=== PATIENT | female | born 1985 | race Caucasian/White ===

== ENCOUNTER 2020-01-02 17:49 | Emergency (ER) | payer OTHER ==
--- NOTE | 2020-01-02 18:15 | EDM.PDOC ---
ED HPI GENERAL MEDICAL PROBLEM - General Chief Complaint: Lower Extremity Injury/Pain Stated Complaint: INJURED RT ANKLE Time Seen by Provider: 01/02/20 18:00 Source of Information: Reports: Patient History Limitations: Reports: No Limitations - History of Present Illness INITIAL COMMENTS - FREE TEXT/NARRATIVE: HISTORY AND PHYSICAL: History of present illness: Patient is a 34-year-old female who presents to the emergency room with complaints of right ankle pain. She states on Tuesday she rolled her ankle and had fallen. Since that time she has had soft tissue swelling and bruising and pain with weightbearing. Today she was able to get into the clinic and had an x-ray but was discharged to home. On her way home she was called by the provider and stated that she needed to come to the emergency room as she did have a fracture. Upon arrival the patient is using crutches and states she has been nonweightbearing. She denies any other extremity involvement. Offers no systemic complaints. Review of systems: As per history of present illness and below otherwise all systems reviewed and negative. Past medical history: As per history of present illness and as reviewed below otherwise noncontributory. Surgical history: As per history of present illness and as reviewed below otherwise noncontributory. Social history: See social history for further information Family history: As per history of present illness and as reviewed below otherwise noncontributory. Physical exam: General: Well-developed and well-nourished 34-year-old female. Alert and oriented. Nontoxic-appearing and in no acute distress HEENT: Atraumatic, normocephalic, pupils equal and reactive bilaterally, negative for conjunctival pallor or scleral icterus, mucous membranes moist, TMs normal bilaterally, throat clear, neck supple, nontender, trachea midline. No drooling or trismus noted. No meningeal signs. No hot potato voice noted. Lungs: Clear to auscultation, breath sounds equal bilaterally, chest nontender. Heart: S1S2, regular rate and rhythm without overt murmur Abdomen: Soft, nondistended, nontender. Negative for masses or hepatosplenomegaly. Negative for costovertebral tenderness. Skin: Intact, warm, dry. No lesions or rashes noted. Extremities: Bruising along the lateral aspect of the foot with soft tissue swelling. She does have medial and lateral malleolus tenderness. Moves all extremities per self without difficulty or deficits, negative for cords or calf pain. Neurovascular unremarkable. Neuro: Awake, alert, oriented. Cranial nerves II through XII unremarkable. Cerebellum unremarkable. Motor and sensory unremarkable throughout. Exam nonfocal. Notes: Patient had an x-ray at clinic. We were able to get this x-ray read while patient is here in the emergency room. X-ray shows a minimally displaced lateral malleolus fracture with soft tissue swelling. Custom fiberglass posterior mold was placed for fracture care and supportive care. Patient states she has multiple allergies to any form of narcotics and declines wanting any prescription at this time. I did encourage her to call tomorrow morning to set up an appointment with the orthopedic provider. Supportive care measures were reviewed and discussed. Voices understanding and is agreeable to plan of care. Denies any further questions or concerns at this time. Diagnostics: None Therapeutics: Fiberglass splint Prescription: Declines Impression: Lateral malleolus fracture, right Plan: 1. Rest, ice, elevate the affected extremity. Please wear the splint and use crutches to be nonweightbearing until you follow-up with an orthopedic provider. 2. Tylenol and/or Ibuprofen as needed for pain management. 3. Follow up with the Orthopedic provider as we discussed, call tomorrow to make your appointment. Return to the ED as needed and as discussed. Definitive disposition and diagnosis as appropriate pending reevaluation and review of above. R ankle Pain Score (Numeric/FACES): 4 - Related Data Allergies Allergy/AdvReac Type Severity Reaction Status Date / Time acetaminophen [From Percocet] Allergy Hallucinati Verified 01/02/20 18:05 ons codeine Allergy Seizure Verified 01/02/20 18:05 hydrocodone Allergy Seizure Verified 01/02/20 18:05 oxycodone [From Percocet] Allergy Hallucinati Verified 01/02/20 18:05 ons propoxyphene Allergy Hallucinati Verified 01/02/20 18:05 [From Darvocet-N] ons Sulfa (Sulfonamide Allergy Cannot Verified 01/02/20 18:05 Antibiotics) Remember Home Meds: Home Meds C 01/02/20 [History] Escitalopram Oxalate [Lexapro] 5 mg PO DAILY 01/02/20 [History] Past Medical History Genitourinary History: Reports: None [employer] History: Reports: Musculoskeletal History: Reports: None Psychiatric History: Reports: Anxiety - Infectious Disease History Infectious Disease History: Reports: Chicken Pox - Past Surgical History Female Surgical History: Reports: Section Musculoskeletal Surgical History: Reports: Other (See Below) Other Musculoskeletal Surgeries/Procedures:: L knee Social & Family History - Family History Family Medical History: Noncontributory - Tobacco Use Smoking Status *Q: Never Smoker Second Hand Smoke Exposure: No - Caffeine Use Caffeine Use: Reports: Coffee - Recreational Drug Use Recreational Drug Use: No Review of Systems - Review of Systems Review Of Systems: Comprehensive ROS is negative, except as noted in HPI. ED EXAM, GENERAL - Physical Exam Exam: See Below (See dictation) Course - Vital Signs Last Recorded V/S: Last Vital Signs Temp 96.9 F 01/02/20 17:57 Pulse 80 01/02/20 17:57 Resp 18 01/02/20 17:57 BP Pulse Ox 98 01/02/20 17:57 - Orders/Labs/Meds Orders: Active Orders 24 hr Category Date Time Status DME for Discharge [COMM] Stat Oth 01/02/20 18:16 Ordered Departure - Departure Time of Disposition: 18:43 Disposition: Home, Self-Care 01 Clinical Impression: Fractured lateral malleolus Qualifiers: Encounter type: initial encounter Fracture type: closed Fracture alignment: displaced Laterality: right Qualified Code(s): S82.61XA - Displaced fracture of lateral malleolus of right fibula, initial encounter for closed fracture - Discharge Information Instructions: Ankle Fracture, [id number] Referrals: Arabella Fortune [employer] OPERATOR [Primary Care Provider] - Forms: ED Department Discharge Additional Instructions: The following information is given to patients seen in the emergency department who are being discharged to home. This information is to outline your options for follow-up care. We provide all patients seen in our emergency department with a follow-up referral. The need for follow-up, as well as the timing and circumstances, are variable depending upon the specifics of your emergency department visit. If you don't have a primary care physician on staff, we will provide you with a referral. We always advise you to contact your personal physician following an emergency department visit to inform them of the circumstance of the visit and for follow-up with them and/or the need for any referrals to a consulting specialist. The emergency department will also refer you to a specialist when appropriate. This referral assures that you have the opportunity for follow-up care with a specialist. All of these measure are taken in an effort to provide you with optimal care, which includes your follow-up. Under all circumstances we always encourage you to contact your private physician who remains a resource for coordinating your care. When calling for follow-up care, please make the office aware that this follow-up is from your recent emergency room visit. If for any reason you are refused follow-up, please contact the [facility] Emergency Department at and asked to speak to the emergency department charge nurse. [facility] Specialty Care - Orthopedic Clinic Professional Building [address] [place] [address], [address] [place] [address] Dr Matson, Orthopedist [facility] [address] [place] [address] Orthopedics at [facility] [address] [place] [address] [facility] [address] [place] [address] 1. Rest, ice, elevate the affected extremity. Please wear the splint and use crutches to be nonweightbearing until you follow-up with an orthopedic provider. 2. Tylenol and/or Ibuprofen as needed for pain management. 3. Follow up with the Orthopedic provider as we discussed, call tomorrow to make your appointment. Return to the ED as needed and as discussed. Sepsis Event Note - Evaluation Sepsis Screening Result: No Definite Risk - Focused Exam Vital Signs: Vital Signs Temp Pulse Resp Pulse Ox 01/02/20 17:57 96.9 F 80 18 98 Date Exam was Performed: 01/02/20 Time Exam was Performed: 18:42 - My Orders Last 24 Hours: My Active Orders 01/02/20 18:16 DME for Discharge [COMM] Stat - Assessment/Plan Last 24 Hours: My Active Orders 01/02/20 18:16 DME for Discharge [COMM] Stat
== END 2020-01-02 19:00 | disposition home or self-care (01) ==
LOC: MW.ED 17:49
CPT/HCPCS: 29515; 99282; 99283-25

== ENCOUNTER 2020-11-20 12:18 | Emergency (ER) | payer BC, OTHER ==
[2020-11-20] MEDS ORDERED: Sodium Chloride 0.9% 1,000 ML IV ONE (12:20)
--- NOTE | 2020-11-20 12:32 | EDM.PDOC ---
ED HPI GENERAL MEDICAL PROBLEM - General Chief Complaint: Abdominal Pain Stated Complaint: CLINIC TRANFSER Time Seen by Provider: 11/20/20 12:19 Source of Information: Reports: Patient History Limitations: Reports: No Limitations - History of Present Illness INITIAL COMMENTS - FREE TEXT/NARRATIVE: HISTORY AND PHYSICAL: History of present illness: Patient is a 35-year-old female who presents to the emergency room from the clinic with concerns of right lower quadrant pain that has been progressively getting worse over the past 4 days. She states this morning any movement would cause pain in the right lower quadrant, has associated nausea. The provider at the clinic is worried for appendicitis. Patient denies any fever, chills, headache, change in vision, syncope or near syncope. Denies any chest pain, back pain, shortness of breath or cough. Denies any abdominal pain, nausea, vomiting, diarrhea, constipation or dysuria. Has not noted any blood in urine or stool. Zaki renee has been eating and drinking appropriately. Review of systems: As per history of present illness and below otherwise all systems reviewed and negative. Past medical history: As per history of present illness and as reviewed below otherwise noncontributory. Surgical history: As per history of present illness and as reviewed below otherwise noncontributory. Social history: See social history for further information Family history: As per history of present illness and as reviewed below otherwise noncontributory. Physical exam: General: Well developed and well nourished 35 year old female. Alert and orientated x 3. Nontoxic in appearance and in no acute distress. Vital signs are stable and have been reviewed by me. Nursing notes were reviewed. Accompanied by . HEENT: Atraumatic, normocephalic, pupils equal and reactive bilaterally, negative for conjunctival pallor or scleral icterus, mucous membranes moist, trachea midline. No drooling or trismus noted. No meningeal signs. No hot potato voice noted. Lungs: Clear to auscultation bilaterally. No wheezes, rales, or rhonchi. Chest nontender. Normal work of breathing, no accessory muscles used. Heart: S1S2, regular rate and rhythm without overt murmur, gallops, or rubs. No JVD. No peripheral edema Abdomen: Soft, nondistended, RLQ tenderness with rebound tenderness. Normoactive bowel sounds. Negative for masses or costovertebral tenderness. Pelvis: Stable nontender. Genitourinary/Rectal: Deferred. Skin: Intact, warm, dry. No lesions or rashes noted. Hematologic: No petechiae or purpra. Mucosa appropriate color and normal nail bed color and refill. Extremities: Atraumatic, moves all extremities per self without difficulty or deficits, negative for cords or calf pain. Neurovascular unremarkable. Neuro: Awake, alert, oriented. Cranial nerves II through XII unremarkable. Cerebellum unremarkable. Motor and sensory unremarkable throughout. Exam nonfocal. Psychiatric: Mood and affect are appropriate. Normal thought process. Answering questions appropriately. Notes: *This patient was seen and evaluated during the 2019 SARS-CoV-2 novel coronavirus pandemic period. Community viral transmission is ongoing at time of this encounter and the emergency department is operating under pandemic response procedures. Patient did have lab work while in the clinic today. WBC 13.9. Negative chemistry. Negative test. She will have a Covid testing and CT of the abdomen and pelvis while here. Patient declines wanting any pain medication stating that she has numerous allergies to pain medications and would prefer not to have anything at this time. CT shows inflammatory process in the right lower quadrant due to cecal diverticulitis. The appendix is normal in appearance but adjacent to this process. No collection. Follow-up is advised. We discussed inpatient versus outpatient treatment. I will give her her first dose of IV antibiotics here along with Zofran. She would prefer to do outpatient therapy which I feel is appropriate. She has demonstrated she can tolerate p.o. while here. Her vital signs remained stable. We discussed signs and symptoms that would prompt her to return to the emergency room. She voices understanding and is agreeable to plan of care. She denies any further questions or concerns at this time. Diagnostics: (CBC, CMP, UA, HCGU was done in clinic) - COVID, CT abd/pelvis Therapeutics: IV fluids, Flagyl, Cipro Prescription: Flagyl, Cipro Impression: Cecal diverticulitis Plan: 1. You have an infection of the diverticula, called diverticulitis. This does require antibiotics for treatment. Please drink plenty of fluids, liquid diet and bowel rest (low fiber foods) are important. Please make sure you do not drink any alcohol while taking the Flagyl as this can cause you to feel nauseated 2. You can alternate Tylenol and ibuprofen as needed for pain and fever management. 3. We encourage you to follow up with your primary care provider and/or recommended specialist in the next few days for re-evaluation and further care/management. 4. If your symptoms should worsen, new symptoms develop or any of the signs and symptoms we discussed should arise please return to the emergency room or call 911 (if needed). Definitive disposition and diagnosis as appropriate pending reevaluation and review of above. Abdomen Pain Score (Numeric/FACES): 5 - Related Data Allergies Allergy/AdvReac Type Severity Reaction Status Date / Time acetaminophen [From Percocet] Allergy Hallucinati Verified 11/20/20 12:43 ons codeine Allergy Seizure Verified 11/20/20 12:43 hydrocodone Allergy Seizure Verified 11/20/20 12:43 oxycodone [From Percocet] Allergy Hallucinati Verified 11/20/20 12:43 ons propoxyphene Allergy Hallucinati Verified 11/20/20 12:43 [From Darvocet-N] ons Sulfa (Sulfonamide Allergy Cannot Verified 11/20/20 12:43 Antibiotics) Remember Home Meds: Home Meds Escitalopram Oxalate [Lexapro] 5 mg PO DAILY 01/02/20 [History] Ciprofloxacin HCl [Cipro] 500 mg PO BID 7 Days #14 tablet 11/20/20 [Rx] metroNIDAZOLE [Flagyl] 500 mg PO BID 7 Days #14 tab 11/20/20 [Rx] Past Medical History Genitourinary History: Reports: 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 ED EXAM, GI/ABD - Physical Exam Exam: See Below (See dictation) Course - Vital Signs Last Recorded V/S: Last Vital Signs Temp 98.3 F 11/20/20 12:44 Pulse 69 11/20/20 15:22 Resp 13 11/20/20 15:22 BP 114/53 L 11/20/20 15:22 Pulse Ox 100 11/20/20 15:22 - Orders/Labs/Meds Labs: Laboratory Tests 11/20/20 Range/Units 13:20 SARS-CoV-2 RNA (LARRY) NEGATIVE (NEGATIVE) Meds: Medications Discontinued Medications Generic Name Dose Route Start Last Admin Trade Name Patti PRN Reason Stop Dose Admin Sodium Chloride 1,000 mls @ 125 mls/hr 11/20/20 12:20 11/20/20 12:52 Normal Saline IV 11/20/20 20:19 125 mls/hr STAT ONE Administration Ciprofloxacin/Dextrose 400 mg/ 200 mls @ 200 mls/hr 11/20/20 13:45 11/20/20 14:03 Premix IV 200 mls/hr Q12H RUTH Administration Metronidazole 500 mg/ Premix 100 mls @ 100 mls/hr 11/20/20 13:38 11/20/20 14:17 IV 11/20/20 14:37 100 mls/hr ONETIME ONE Administration Ibuprofen 400 mg 11/20/20 15:09 11/20/20 15:12 Motrin PO 11/20/20 15:10 400 mg ONETIME ONE Administration Iopamidol 100 ml 11/20/20 13:18 11/20/20 13:19 Isovue Multipack-370 (76%) IVPUSH 11/20/20 13:19 100 ml ONETIME ONE Administration Ondansetron HCl 4 mg 11/20/20 13:45 11/20/20 14:03 Zofran Odt PO 11/20/20 13:46 4 mg ONETIME ONE Administration Departure - Departure Time of Disposition: 18:53 Disposition: Home, Self-Care 01 Clinical Impression: Cecal diverticulitis - Discharge Information Prescriptions: Ciprofloxacin HCl [Cipro] 500 mg PO BID 7 Days #14 tablet metroNIDAZOLE [Flagyl] 500 mg PO BID 7 Days #14 tab Instructions: Diverticulitis, [id number] Referrals: Sidney Encarnacion MD [Primary Care Provider] - Forms: ED Department Discharge Additional Instructions: The following information is given to patients seen in the emergency department who are being discharged to home. This information is to outline your options for follow-up care. We provide all patients seen in our emergency department with a follow-up referral. The need for follow-up, as well as the timing and circumstances, are variable depending upon the specifics of your emergency department visit. If you don't have a primary care physician on staff, we will provide you with a referral. We always advise you to contact your personal physician following an emergency department visit to inform them of the circumstance of the visit and for follow-up with them and/or the need for any referrals to a consulting specialist. The emergency department will also refer you to a specialist when appropriate. This referral assures that you have the opportunity for follow-up care with a specialist. All of these measure are taken in an effort to provide you with optimal care, which includes your follow-up. Under all circumstances we always encourage you to contact your private physician who remains a resource for coordinating your care. When calling for follow-up care, please make the office aware that this follow-up is from your recent emergency room visit. If for any reason you are refused follow-up, please contact the [facility] Emergency Department at and asked to speak to the emergency department charge nurse. [facility] Primary Care [address] [place] [address] [place] [address] Thank you for choosing the [facility] emergency department in [place] for your medical needs today. It was a pleasure caring for you. Today you were seen in the emergency department for RLQ abdominal pain. 1. You have an infection of the diverticula, called diverticulitis. This does require antibiotics for treatment. Please drink plenty of fluids, liquid diet and bowel rest (low fiber foods) are important. Please make sure you do not drink any alcohol while taking the Flagyl as this can cause you to feel nauseated 2. You can alternate Tylenol and ibuprofen as needed for pain and fever management. 3. We encourage you to follow up with your primary care provider and/or recommended specialist in the next few days for re-evaluation and further care/management. 4. If your symptoms should worsen, new symptoms develop or any of the signs and symptoms we discussed should arise please return to the emergency room or call 911 (if needed). Sepsis Event Note (ED) - Focused Exam Vital Signs: Vital Signs Temp Pulse Resp BP Pulse Ox 11/20/20 15:22 69 13 114/53 L 100 11/20/20 14:32 75 16 125/57 L 98 11/20/20 13:23 72 16 118/61 98 11/20/20 12:44 98.3 F 73 16 126/70 97
[2020-11-20] MEDS ORDERED: Iopamidol 755 MG/ML 500 ML Multipack Bottle IVPUSH ONE (13:18)
--- NOTE | 2020-11-20 13:37 | CT ---
INDICATION: Right lower quadrant pain for 5 days COMPARISON: July 25, 2020 TECHNIQUE: CT examination of the abdomen and pelvis was performed following the uneventful intravenous administration of 100 cc of Isovue 370. Thin section axial images were obtained from the lung bases through the pubic symphysis. Oral contrast was not administered. Please note that all CT scans at this facility use dose modulation, iterative reconstruction, and/or weight-based dosing when appropriate to reduce radiation dose to as low as reasonably achievable. FINDINGS: LUNG BASES: The lung bases as visualized appear normal.The heart size is normal at the lung bases. LIVER/BILIARY SYSTEM:Hepatic steatosis. No focal mass or biliary ductal dilatation.The gallbladder appears normal. ADRENALS: Normal KIDNEYS, URETERS and BLADDER:The kidneys appear normal. No visible mass, calculus or hydronephrosis. The ureters and bladder as visualized appear normal. SPLEEN:Normal appearance. PANCREAS: Appears normal. RETROPERITONEUM and MESENTERY: There is no mass, adenopathy or aortic aneurysm. GASTROINTESTINAL SYSTEM: There is inflammatory process arising from the under surface of the cecum. There is fluid and inflammatory process in this area but no collection or free air. The imaging features are compatible with cecal diverticulitis. The inflamed diverticulum is seen on axial image number 100, coronal image number 45 and sagittal image 53. The appendix is in this area but does not appear to be inflamed. PELVIS: No mass or adenopathy.. OSSEOUS STRUCTURES and ABDOMINAL WALL: There is an age-appropriate appearance of the osseous structures.No significant abdominal wall defect. OTHER: No free air IMPRESSION: Inflammatory process in the right lower quadrant due to cecal diverticulitis. The appendix is normal in appearance but adjacent to this process. No collection. Follow-up is advised Please note that all CT scans at this facility use dose modulation, iterative reconstruction, and/or weight-based dosing when appropriate to reduce radiation dose to as low as reasonably achievable. Dictated by Hubert Reno MD @ Nov 20 2020 1:26PM Signed by Dr. Hubert Reno @ Nov 20 2020 1:35PM
[2020-11-20] MEDS ORDERED: metroNIDAZOLE/Normal Saline 500 MG in Premix Bag 1 BAG IV ONE (13:38)
[2020-11-20] MEDS ORDERED: Ciprofloxacin in D5W 400 MG in Premix Bag 1 BAG IV SCH ×2 (13:45)
[2020-11-20] MEDS ORDERED: Ondansetron 4 MG Tab.DIS PO ONE (13:45)
[2020-11-20] MEDS ORDERED: Ibuprofen 400 MG Tab PO ONE (15:09)
== END 2020-11-20 15:23 | disposition home or self-care (01) ==
LOC: MW.ED 12:18
DX: K57.32 Diverticulitis of large intestine without perforation or abscess without bleeding (principal); Z88.6 Allergy status to analgesic agent; Z88.5 Allergy status to narcotic agent; Z88.2 Allergy status to sulfonamides; Z79.899 Other long term (current) drug therapy; Z20.822 Contact with and (suspected) exposure to COVID-19
CPT/HCPCS: 74177; 87635; 96365; 96368; 99284; A9270; J0744; J3490; J7030; Q9967; 99283; U0002